=== PATIENT | male | born 1985 | race Caucasian/White ===

== ENCOUNTER 2018-01-15 11:46 | Emergency (ER) | payer BC, OTHER ==
[2018-01-15 11:56] VITALS: BP 124/78
[2018-01-15] MEDS ORDERED: Tetanus-Diptheria Toxoids* 0.5 ML SYRINGE IM ONE (11:57)
[2018-01-15] MEDS ORDERED: Tetan/Diph/Pertus SYR(Tdap)* 0.5 ML SYR(BOOSTRIX) use SYR IM ONE (12:05)
--- NOTE | 2018-01-15 12:09 | UC ---
Lower Extremity/Ankle HPI - HPI Summary HPI Summary: stepped on nail in trim , went through shoe and into anterior portion of the plantar side of foot, no recent TDAp. happened 1/2 hour ago - History of Current Complaint Chief Complaint: UCTrauma Stated Complaint: LEFT FOOT PUNCTURE WOUND Time Seen by Provider: 01/15/18 11:49 Hx Obtained From: Patient Onset/Duration: Sudden Onset Severity Initially: Mild Pain Intensity: 3 Aggravating Factor(s): Standing Alleviating Factor(s): Rest Able to Bear Weight: Yes - Risk Factors Gout Risk Factors: Negative DVT Risk Factors: Negative - Allergies/Home Medications Allergies/Adverse Reactions: Allergies Allergy/AdvReac Type Severity Reaction Status Date / Time No Known Allergies Allergy Verified 01/15/18 11:56 PMH/Surg Hx/FS Hx/Imm Hx Previously Healthy: Yes - Surgical History Surgical History: None - Family History Known Family History: Positive: Cardiac Disease - Social History Alcohol Use: Rare Alcohol Amount: once a week Substance Use Type: None Smoking Status (MU): Light Every Day Tobacco Smoker Type: Cigarettes Amount Used/How Often: 5 cigarettes Household Exposure Type: Cigarettes - Immunization History Most Recent Influenza Vaccination: no Most Recent Tetanus Shot: 2011 Review of Systems Constitutional: Negative Skin: Negative Eyes: Negative ENT: Negative Respiratory: Negative Cardiovascular: Negative Gastrointestinal: Negative Genitourinary: Negative Motor: Negative Neurovascular: Negative Musculoskeletal: Other: - stepped on nail Neurological: Negative Psychological: Negative Is Patient Immunocompromised?: No All Other Systems Reviewed And Are Negative: Yes Physical Exam - Summary Physical Exam Summary: small puncture wound plantar portion of foot left with clean edges, full rom, no alteration in sensation Triage Information Reviewed: Yes Appearance: Well-Appearing Vital Signs: Initial Vital Signs Temp 37.0 C 01/15/18 11:51 Pulse 83 01/15/18 11:51 Resp 16 01/15/18 11:51 BP 124/78 01/15/18 11:51 Pulse Ox 99 01/15/18 11:51 Vital Signs Reviewed: Yes Eye Exam: Normal Skin Exam: Other - puncture wound plantar portion of left foot between first and second toes Lower Extremity Course/Dx - Differential Dx/Diagnosis Provider Diagnoses: penetrating injury left foot Discharge - Sign-Out/Discharge Documenting (check all that apply): Patient Departure All imaging exams completed and their final reports reviewed: No Studies - Discharge Plan Condition: Good Disposition: HOME Patient Education Materials: Puncture Wound (ED) Referrals: Pilar Noriega MD [Primary Care Provider] - - Billing Disposition and Condition Condition: GOOD Disposition: Home
== END 2018-01-15 12:18 | disposition home or self-care (01) ==
LOC: UCCORT 11:46
DX: S91.332A Puncture wound without foreign body, left foot, initial encounter (principal); W22.8XXA Striking against or struck by other objects, initial encounter; Y93.01 Activity, walking, marching and hiking; Y92.9 Unspecified place or not applicable; F17.210 Nicotine dependence, cigarettes, uncomplicated
CPT/HCPCS: 90471; 90715; 99212; G0463

== ENCOUNTER 2018-10-03 11:54 | Emergency (ER) | payer BC, OTHER ==
[2018-10-03 12:13] VITALS: BP 133/99
--- NOTE | 2018-10-03 12:36 | UC ---
Head Injury HPI - HPI Summary HPI Summary: Pt presents with c/o of having iron moni hit left [employer] today ~ 1 hour ago at work. Denies LOC, nausea, vomiting, LEWIS, change in vision, fluid from nostrils or ears. Deies worsening LEWIS and is cognitively appropriate during exam. - History Of Current Complaint Chief Complaint: UCHeadInjury Stated Complaint: WC HEAD INJURY Time Seen by Provider: 10/03/18 12:29 Hx Obtained From: Patient Onset/Duration: Sudden Onset, Still Present Severity Currently: Mild Severity Initially: Mild Pain Intensity: 2 Character: Dull Aggravating Factor(s): Nothing Alleviating Factor(s): Nothing Associated Signs And Symptoms: Positive: Negative - Risk Factors SDH Risk Factor: Male - Allergies/Home Medications Allergies/Adverse Reactions: Allergies Allergy/AdvReac Type Severity Reaction Status Date / Time No Known Allergies Allergy Verified 10/03/18 12:08 Home Medications: Home Medications Acetaminophen [Tylenol Extra Strength] 1,000 mg PO ONCE PRN 10/03/18 [History Confirmed 10/03/18] PMH/Surg Hx/FS Hx/Imm Hx Previously Healthy: Yes - Surgical History Surgical History: Yes Surgery Procedure, Year, and Place: jaw surgery - Family History Known Family History: Positive: Cardiac Disease - Social History Occupation: Employed Full-time Lives: With Family Alcohol Use: Occasionally Alcohol Amount: once a week Substance Use Type: None Smoking Status (MU): Former Smoker Type: Cigarettes Amount Used/How Often: 5 cigarettes When Did the Patient Quit Smoking/Using Tobacco: 11/2016 Household Exposure Type: Cigarettes - Immunization History Most Recent Influenza Vaccination: no Most Recent Tetanus Shot: 2011 Vaccination Up to Date: Yes Review of Systems All Other Systems Reviewed And Are Negative: Yes Constitutional: Positive: Negative Skin: Positive: Bruising Eyes: Positive: Negative ENT: Positive: Negative Respiratory: Positive: Negative Cardiovascular: Positive: Negative Gastrointestinal: Positive: Negative Genitourinary: Positive: Negative Motor: Positive: Negative Neurovascular: Positive: Negative Musculoskeletal: Positive: Negative Neurological: Positive: Headache Psychological: Positive: Negative Is Patient Immunocompromised?: No Physical Exam Triage Information Reviewed: Yes Appearance: Well-Appearing Vital Signs: Initial Vital Signs Temp 97.7 F 10/03/18 12:09 Pulse 57 10/03/18 12:09 Resp 15 10/03/18 12:09 BP 133/99 10/03/18 12:09 Pulse Ox 100 10/03/18 12:09 Vital Signs Reviewed: Yes Eye Exam: Normal ENT Exam: Normal Neck exam: Normal Respiratory Exam: Normal Cardiovascular Exam: Normal Musculoskeletal Exam: Normal Neurological Exam: Normal Psychological Exam: Normal Skin Exam: Other - mild swelling left side of forehead, no stepoff, no significant bruising. Head Injury Course/Dx - Differential Dx/Diagnosis Differential Diagnosis/HQI/PQRI: Concussion Without LOC, Contusion, Intracranial Bleed Provider Diagnosis: Contusion of head Discharge - Sign-Out/Discharge Documenting (check all that apply): Patient Departure All imaging exams completed and their final reports reviewed: No Studies - Discharge Plan Condition: Stable Disposition: HOME Patient Education Materials: Head Injury (ED), Contusion in Adults (ED) Forms: *Work Release Referrals: Pilar Noriega MD [Primary Care Provider] - If Needed - Billing Disposition and Condition Condition: STABLE Disposition: Home
== END 2018-10-03 12:43 | disposition home or self-care (01) ==
LOC: UCCORT 11:54
DX: S00.93XA Contusion of unspecified part of head, initial encounter (principal); X58.XXXA Exposure to other specified factors, initial encounter; Y92.9 Unspecified place or not applicable; Z87.891 Personal history of nicotine dependence
CPT/HCPCS: 99211; G0463